=== PATIENT | female | born 1965 | race Caucasian/White ===

== ENCOUNTER → 2021-04-06 | Outpatient (CLI) | payer BC ==
[2016-07-02 15:10] VITALS: BP 153/104
[~2021-04-06] MED LIST: AMOX1TAB61 PO
--- NOTE | 2021-04-06 09:16 | RAD ---
US PELVIS W/TV History: Reason: COLICKY RLQ ABD PAIN / Spl. Instructions: / History: Comparison: None Technique: Grayscale and color Doppler imaging of the pelvis was performed using transabdominal and t ransvaginal technique. Findings: The uterus measures 6.7 x 3.5 x 2.3 cm. Calcification within the lower uterine segment. No focal mildred rine lesion identified. The endometrial stripe measures 2 mm. Bilateral ovaries not identified due to positioning and overlying structures. No free fluid. IMPRESSION: 1. Nonspecific calcification within the lower uterine segment, may relate to prior insult. No focal uterine lesion identified. 2. Bilateral ovaries not identified. Electronically signed by: David Nesbitt DO (04/06/2021 9:14 AM) [id number]
== END ==
LOC: US 07:57
PROVIDERS: ATTEND Family Medicine
DX: N85.8 Other specified noninflammatory disorders of uterus (principal); R10.31 Right lower quadrant pain
CPT/HCPCS: 76830; 76856

== ENCOUNTER 2021-05-17 09:59 | Emergency (ER) | payer BC ==
[~2021-05-17] VITALS: Ht 157.5 cm; Wt 71.0 kg
[2021-05-17] MEDS ORDERED: IOHEXOL 300 MG/ML 75 ML VIAL. IV ONE (10:30)
[2021-05-17] MEDS ORDERED: ONDANSETRON PF 4 MG/2 ML VIAL. IVP ONE ×2 (10:30→12:15)
[2021-05-17] MEDS ORDERED: IV RINGERS SOLUTION,LACTATED 1,000 ML IV ONE (10:30)
--- NOTE | 2021-05-17 11:00 | PHYS DOC ---
Past History Past Medical History: Diabetes, Hypertension (LEONARDO NAVARRETE) Past Surgical History: Cholecystectomy, Other Additional Past Surgical Histo: bariatric sleeve (LEONARDO NAVARRETE) Additional Smoking Information: Social smoker Alcohol Use: Occasionally Drug Use: None (LEONARDO NAVARRETE) General Adult EDM: Chief Complaint: ABDOMINAL PAIN HPI: HPI: Patient is a 55 year old female who presents with abdominal pain, NVD for the past 4-5 days. Her pain is central/periumbilical and radiates to the low abdomen, especially the right side. She denies exacerbating and remitting factors. She has not ambulated much at home secondary to her pain. Patient states Saturday evening she became nauseated and dry heaves without emesis several hours after eating chicken and noodles she made at home. She vomited the next day. She has been able to keep liquids (water, gatorade, pedialyte, broth) down, but becomes increasingly nauseated when she "even thinks about eating." She has had watery stools since Saturday and feels subjectively dehydrated. She reports a 100F temperature this week. She has not taken any medications for symptom relief. (LEONARDO NAVARRETE) Review of Systems: Review of Systems: Constitutional: See HPI Respiratory: Denies cough or shortness of breath Cardiovascular: Denies chest pain or edema GI: See HPI : Denies dysuria or hematuria Musculoskeletal: Denies back pain or joint pain Integument: Denies rash or other skin lesions Neurologic: Denies headache, focal weakness or sensory changes Endocrine: Denies polyuria or polydipsia (LEONARDO NAVARRETE) Current Medications: Current Meds: Current Medications Medications (Trade) Dose Ordered Sig/Fernando Start Time Stop Time Status Last Admin Dose Admin Iohexol (Omnipaque 300 Mg/ml) 75 ml 1X ONCE 05/17/21 10:30 05/17/21 10:35 DC Lactated Ringer's 1,000 ml @ 1,000 mls/hr 1X ONCE 05/17/21 10:30 05/17/21 11:29 Ondansetron HCl (Zofran) 4 mg 1X ONCE 05/17/21 10:30 05/17/21 10:31 DC (LEONARDO NAVARRETE) Allergies: Allergies: Allergies Coded Allergies Type Severity Reaction Last Updated Verified No Known Drug Allergies 05/17/21 No (LEONARDO NAVARRETE) Physical Exam: PE: Constitutional: Well developed, well nourished, no acute distress, non-toxic appearance. HENT: Normocephalic, atraumatic, bilateral external ears normal, oropharynx moist, no oral exudates, nose normal. Eyes: PERRLA, EOMI, conjunctiva normal, no discharge. Neck: Normal range of motion, no tenderness, supple, no stridor. Cardiovascular: Heart rate regular rhythm, no murmur. Lungs & Thorax: Bilateral breath sounds clear to auscultation. Abdomen: Nondistended abdomen with normoactive bowel sounds, periumbilical and right lower quadrant tenderness appreciated, positive McBurney's point tenderness. Skin: Warm, dry, no erythema, no rash. Back: No step-offs, no tenderness, no CVA tenderness. Extremities: No tenderness, no cyanosis, no clubbing, ROM intact, no edema. Neurologic: Alert and oriented x4, no focal deficits noted. (LEONARDO NAVARRETE) Current Patient Data: Labs: Laboratory Tests Test 05/17/21 10:53 White Blood Count 9.9 x10^3/uL (4.0-11.0) Red Blood Count 4.20 x10^6/uL (3.50-5.40) Hemoglobin 12.6 g/dL (12.0-15.5) Hematocrit 38.1 % (36.0-47.0) Mean Corpuscular Volume 91 fL (79-100) Mean Corpuscular Hemoglobin 30 pg (25-35) Mean Corpuscular Hemoglobin Concent 33 g/dL (31-37) Red Cell Distribution Width 17.4 % (11.5-14.5) Platelet Count 236 x10^3/uL (140-400) Neutrophils (%) (Auto) 79 % (31-73) Lymphocytes (%) (Auto) 10 % (24-48) Monocytes (%) (Auto) 11 % (0-9) Eosinophils (%) (Auto) 1 % (0-3) Basophils (%) (Auto) 0 % (0-3) Neutrophils # (Auto) 7.7 x10^3uL (1.8-7.7) Lymphocytes # (Auto) 1.0 x10^3/uL (1.0-4.8) Monocytes # (Auto) 1.1 x10^3/uL (0.0-1.1) Eosinophils # (Auto) 0.0 x10^3/uL (0.0-0.7) Basophils # (Auto) 0.0 x10^3/uL (0.0-0.2) Sodium Level 130 mmol/L (136-145) Potassium Level 4.1 mmol/L (3.5-5.1) Chloride Level 93 mmol/L (98-107) Carbon Dioxide Level 23 mmol/L (21-32) Anion Gap 14 (6-14) Blood Urea Nitrogen 8 mg/dL (7-20) Creatinine 0.6 mg/dL (0.6-1.0) Estimated GFR (Cockcroft-Gault) 104.6 BUN/Creatinine Ratio 13 (6-20) Glucose Level 81 mg/dL (70-99) Calcium Level 9.0 mg/dL (8.5-10.1) Total Bilirubin 0.5 mg/dL (0.2-1.0) Aspartate Amino Transf (AST/SGOT) 40 U/L (15-37) Alanine Aminotransferase (ALT/SGPT) 43 U/L (14-59) Alkaline Phosphatase 231 U/L (46-116) Total Protein 7.6 g/dL (6.4-8.2) Albumin 3.0 g/dL (3.4-5.0) Albumin/Globulin Ratio 0.7 (1.0-1.7) Lipase 69 U/L (73-393) Vital Signs: Vital Signs Date Time Temp Pulse Resp B/P (MAP) Pulse Ox O2 Delivery O2 Flow Rate FiO2 05/17/21 10:08 100.0 96 18 144/96 (112) 96 Room Air (LEONARDO NAVARRETE) Radiology/Procedures: Radiology/Procedures: PROCEDURE: CT ABD PELV W/ IV CONTRST ONLY ADDENDUM ADDENDUM #1 Addendum: As described in the findings section, there is a tubular opacity in the right lower lobe. This can be further assessed by nonemergent CT of the chest. Electronically signed by: Trevor Stephen MD (05/17/2021 11:41 AM) [email or web address] ORIGINAL REPORT EXAM: CT Abdomen and Pelvis with IV contrast CLINICAL HISTORY: abd pain, hx gastric sleeve COMPARISON: none TECHNIQUE: Helical CT of the abdomen and pelvis was performed following the administration of intravenous contrast. Axial, coronal and sagittal reformatted images were generated. PQRS compliance statement - One or more of the following individualized dose reduction techniques were utilized for this study: 1. Automated exposure control 2. Adjustment of the mA and/or kV according to patient size 3. Use of iterative reconstruction technique FINDINGS: Lower Chest: Tubular opacity right lower lobe measuring 2.3 x 0.6 cm, possibly debris-filled airway although focal lung nodules aren't excluded, this is only partially included in the [id number]. Abdomen and Pelvis: Changes of partial gastrectomy/gastric sleeve surgery are seen. Spleen, adrenal glands, pancreas and liver are unremarkable. Accounting for postcholecystectomy change, no biliary ductal dilatation. Heterogeneous right nephrogram, likely reactive. Nonobstructing right lower pole renal calculus. No ureteral or bladder calculi. Left upper pole renal cyst. The appendix is dilated with several appendicoliths, including at the base of the appendix. Small adjacent gas and fluid collection is seen measuring 4.5 x 3.8 x 2.2 cm. Enlarged right lower quadrant lymph nodes are seen. Small volume free pelvic fluid. No bowel obstruction. Sclerotic focus left ischiofemoral likely bone island. Degenerative changes of the lower lumbar spine centered at L4-5 with severe disc height loss. IMPRESSION: 1. Acute appendicitis with findings of perforation including a 4.5 cm periapp endiceal collection. 2. Heterogeneous right nephrogram, likely reactive from acute appendicitis. 3. Nonobstructing right lower pole renal calculus. Findings discussed with Dr. Navarrete at 05/17/2021 11:10 AM. FOR INTERNAL CODING PURPOSES RESULT CODE: (C) Electronically signed by: Trevor Stephen MD (05/17/2021 11:15 AM) [email or web address] (LEONARDO NAVARRETE) Heart Score: C/O Chest Pain: No (LEONARDO NAVARRETE) Course & Med Decision Making: Course & Med Decision Making Pertinent Labs and Imaging studies reviewed. (See chart for details) Patient history and presentation concerning for gastric sleeve complication versus appendicitis versus gastroenteritis. Work-up today will consist of labs, urinalysis, CT abdomen with IV contrast. Patient provided with IV fluids and IV Zofran. Received a call from radiology informing me that the patient has acute appendicitis with evidence of perforation. Patient started on Zosyn and given IV morphine. Calls placed to general surgery and hospitalist service at [facility]. Both physicians are amenable to excepting patient for further care. Nursing supervisor asbestos removal, Lexii, at [facility] informs me that there are no beds currently available at [facility], however she will inform us when she "has something arranged." I did emphasize the fact that this patient has a surgical abdomen with perforated appendix, and that she does have urgent need for transfer. I offered any assistance needed on arranging transfer. She declines, and states she will work on it from her end. Patient will likely have her urgent appendectomy performed tomorrow morning at [facility] by Dr. Valenzuela, general surgeon. Patient does have a bed and will be transferred soon as possible to Dr. Urrutia, hospitalist, service. (LEONARDO NAVARRETE) Course & Med Decision Making I was the Attending physician on the above date of service of this patient. This patient was evaluated, examined, treated, and dispositioned from the emergency department by the mid-level practitioner. I reviewed case and repeated certain aspects of history and physical exam with patient. I agreed need for hospital transfer for surgical intervention. Electronically signed, Yamilex Gonzalez DO (YAMILEX GONZALEZ DO) [facility] Disclaimer: [facility] Disclaimer: This electronic medical record was generated, in whole or in part, using a voice recognition dictation system. (LEONARDO NAVARRETE) Departure Departure: Impression: Primary Impression: Acute appendicitis with perforation and localized peritonitis, without a bscess Qualified Codes: K35.32 - Acute appendicitis with perforation and localized peritonitis, without abscess Disposition: 02 SHORT TERM HOSPITAL Condition: GUARDED Referrals: PELON BURDEN (PCP) LEONARDO NAVARRETE May 17, 2021 10:59 YAMILEX GONZALEZ DO May 17, 2021 17:13
[2021-05-17 11:11] LABS: BASO % 0 % (0-3); EOS % 1 % (0-3); HEMATOCRIT 38.1 % (36.0-47.0); HEMOGLOBIN 12.6 g/dL (12.0-15.5); LYMPH % 10 % (24-48); MEAN CORPUSCULAR HEMOGLOBIN 30 pg (25-35); MEAN CORPUSCULAR HGB CONC 33 g/dL (31-37); MEAN CORPUSCULAR VOLUME 91 fL (79-100); MONO # 1.1 x10^3/uL (0.0-1.1); MONO % 11 % (0-9); NEUT # 7.7 x10^3uL (1.8-7.7); NEUT % 79 % (31-73); PLATELET COUNT 236 x10^3/uL (140-400); RED CELL DISTRIBUTION WIDTH 17.4 % (11.5-14.5); WHITE BLOOD COUNT 9.9 x10^3/uL (4.0-11.0)
--- NOTE | 2021-05-17 11:17 | RAD ---
EXAM: CT Abdomen and Pelvis with IV contrast CLINICAL HISTORY: abd pain, hx gastric sleeve COMPARISON: none TECHNIQUE: Helical CT of the abdomen and pelvis was performed following the administration of intrave nous contrast. Axial, coronal and sagittal reformatted images were generated. PQRS compliance statement - One or more of the following individualized dose reduction techniques wer e utilized for this study: 1. Automated exposure control 2. Adjustment of the mA and/or kV according to patient size 3. Use of iterative reconstruction technique FINDINGS: Lower Chest: Tubular opacity right lower lobe measuring 2.3 x 0.6 cm, possibly debris-filled airway although focal lung nodules aren't excluded, this is only partially included in the [id number]. Abdomen and Pelvis: Changes of partial gastrectomy/gastric sleeve surgery are seen. Spleen, adrenal glands, pancreas and liver are unremarkable. Accounting for postcholecystectomy change, no biliary ductal dilatation. Heterogeneous right nephrogram, likely reactive. Nonobstructing right lower pole renal calculus. No u reteral or bladder calculi. Left upper pole renal cyst. The appendix is dilated with several appendicoliths, including at the base of the appendix. Small adj acent gas and fluid collection is seen measuring 4.5 x 3.8 x 2.2 cm. Enlarged right lower quadrant ly mph nodes are seen. Small volume free pelvic fluid. No bowel obstruction. Sclerotic focus left ischiofemoral likely bone island. Degenerative changes of the lower lumbar spine centered at L4-5 with severe disc height loss. IMPRESSION: 1. Acute appendicitis with findings of perforation including a 4.5 cm periappendiceal collection. 2. Heterogeneous right nephrogram, likely reactive from acute appendicitis. 3. Nonobstructing right lower pole renal calculus. Findings discussed with Dr. Henriquez at 05/17/2021 11:10 AM. FOR INTERNAL CODING PURPOSES RESULT CODE: (C) Electronically signed by: Trevor Stephen MD (05/17/2021 11:15 AM) [email or web address]
[2021-05-17 11:21] LABS: CREATININE 0.6 mg/dL (0.6-1.0); GFR 104.6; POTASSIUM 4.1 mmol/L (3.5-5.1)
[2021-05-17 11:27] LABS: ALBUMIN/GLOBULIN RATIO 0.7 (1.0-1.7); TOTAL BILIRUBIN 0.5 mg/dL (0.2-1.0); TOTAL PROTEIN 7.6 g/dL (6.4-8.2)
[2021-05-17] MEDS ORDERED: MORPHINE SULFATE 4 MG/ML DISP.SYRIN. IV ONE (11:30)
[2021-05-17] MEDS ORDERED: PIPERACILLIN/TAZOBACTAM 3.375 GM in IV NORMAL SALINE 50ML 50 ML IV ONE (11:30)
[2021-05-17] MEDS ORDERED: IV NORMAL SALINE 50ML 50 ML ONE (11:50)
[2021-05-17] MEDS ORDERED: PIPERACILLIN/TAZOBACTAM 3.375 GM VIAL IV ONE (11:50)
[2021-05-17 12:14] LABS: BACTERIA,URINE FEW /HPF (0-FEW); BILIRUBIN,URINE SMALL (NEG); CLARITY,URINE CLEAR; COLOR,URINE YELLOW; GLUCOSE,URINE NEG (NEG); NITRITE,URINE NEG (NEG)
[2021-05-17 12:15] LABS: SQUAMOUS EPITHELIAL CELL,UR FEW /LPF
[2021-05-17] MEDS ORDERED: KETOROLAC 30 MG/ML VIAL. IVP ONE (12:45)
[2021-05-17] MEDS ORDERED: diphenhydrAMINE 50 MG/ML VIAL IVP ONE (12:45)
[2021-05-17 12:47] VITALS: BP 143/98
--- NOTE | 2021-05-20 09:38 | NUR ---
Patient notified of covid results
== END 2021-05-17 15:48 | disposition short-term general hospital (02) ==
LOC: ER 09:59
DX: K35.32 Acute appendicitis with perforation, localized peritonitis, and gangrene, without abscess (principal); E11.9 Type 2 diabetes mellitus without complications; I10 Essential (primary) hypertension; Z20.822 Contact with and (suspected) exposure to COVID-19; Z90.49 Acquired absence of other specified parts of digestive tract
CPT/HCPCS: 36415; 74177; 80053; 81001; 83690; 85025; 87086; 87426; 96361; 96365; 96375; 96376; 99285; C9803; J1200; J1885; J2270; J2405; J2543; J3010; J7120; Q9967; U0003

== ENCOUNTER → 2021-06-26 | Outpatient (CLI) | payer BC ==
--- NOTE | 2021-06-26 15:10 | RAD ---
EXAM: Merino scale and color Doppler abdominal sonogram. HISTORY: Rectal sheath hematoma. TECHNIQUE: Merino scale and color Doppler sonographic imaging of the abdomen was performed. COMPARISON: CT dated 06/09/2021. FINDINGS: There is a simple appearing loculated fluid collection within the right lower quadrant ashwin uring approximately 6.7 x 3.9 x 2.0 cm. The adjacent urinary bladder is unremarkable. There is a hypo echoic structure within the right adnexa likely due to the right ovary. IMPRESSION: 1. 6.7 cm simple appearing fluid collection within the right lower quadrant, possibly a postoperative seroma. The possibility of a superinfected fluid collection/abscess is not excluded. 2. Note is made that the previously described right rectus sheath hematoma is not appreciated on the submitted images. Electronically signed by: Vania Feng MD (06/26/2021 3:08 PM) [id number]
== END ==
LOC: US 14:04
PROVIDERS: ATTEND Family Medicine
DX: S30.1XXS Contusion of abdominal wall, sequela (principal); R33.9 Retention of urine, unspecified; Z90.49 Acquired absence of other specified parts of digestive tract; X58.XXXS Exposure to other specified factors, sequela
CPT/HCPCS: 76857

== ENCOUNTER → 2021-07-21 | Outpatient (CLI) | payer BC ==
[~2021-07-21] MED LIST changes: +IOHEXOL 240 MG/ML 50ML VIAL. PO ONE; +IOHEXOL 300 MG/ML 75 ML VIAL. IV ONE
--- NOTE | 2021-07-21 11:22 | RAD ---
INDICATION: Reason: post appendicitis 05/29 still having pain / Spl. Instructions: OMNI 300, 75ml O MNI 240, 30ml / History: COMPARISON: May 17, 2021 TECHNIQUE: Axial CT images were obtained through the abdomen and pelvis with intravenous contrast. One or more of the following individualized dose reduction techniques were utilized for this examinat ion: 1. Automated exposure control; 2. Adjustment of the mA and/or kV according to patient size; 3 . Use of iterative reconstruction technique. FINDINGS: Linear opacity right lung base could be from scarring or atelectasis. Postoperative changes status post gastric bypass. Mild distal esophageal distention again seen. This is commonly seen postoperatively. Vascular: No abdominal aortic aneurysm. Hepatobiliary: Postcholecystectomy changes with mild prominence of bile ducts which is commonly seen postoperatively. Pancreas: No peripancreatic edema. Spleen: Spleen unremarkable. Renal/Bladder: 9 mm low-density lesion of the left kidney not well characterized but most common caus e would be benign causes such as small cyst. Wall thickening of the anterior aspect of the urinary bl adder. Nonobstructive right renal stone. Gastrointestinal: Postoperative changes to the right lower quadrant with contrast seen within the lar ge and small bowel. Subcutaneous induration the fat which could be postoperative in nature. Just deep to the right rectus sheath there is a high density structure seen measuring approximately 25 x 15 mm with adjacent stranding to the fat. At the right pelvic sidewall anteriorly abutting the urinary sun dder and vessels there is a rim-enhancing structure seen with central low density measuring 26 x 18 m m. Stranding to the fat in the area. Degenerative changes the spine with multilevel central canal and neural foraminal stenosis. IMPRESSION: * Within the right lower quadrant anteriorly adjacent to the urinary bladder there is a rim-enhanci ng structure identified with relative central low density. There is also an additional similar appear ing structure just deep to the right rectus sheath with haziness the fat seen within the area. This c ould be secondary to complex fluid collections within the area with causes such as small soft tissue hematoma within the differential and another possible cause including small abscess. * Wall thickening the urinary bladder with adjacent edema to the fat. Could be some residual inflamm ation to the region. Would correlate with symptoms since cystitis is not excluded given this finding. Electronically signed by: Ronaldo Restrepo MD (07/21/2021 11:20 AM) [id number]
== END ==
LOC: CT 08:35
PROVIDERS: ATTEND Family Medicine
DX: S30.1XXS Contusion of abdominal wall, sequela (principal); N20.0 Calculus of kidney; R68.81 Early satiety; R33.9 Retention of urine, unspecified; M48.07 Spinal stenosis, lumbosacral region; Z90.49 Acquired absence of other specified parts of digestive tract; X58.XXXS Exposure to other specified factors, sequela
CPT/HCPCS: 74177; Q9966; Q9967